=== PATIENT | male | born 1980 | race Caucasian/White ===

== ENCOUNTER 2023-11-02 04:51 | Emergency (ER) | payer OTHER ==
[2023-11-02 05:16] VITALS: TEMP 97.9
[2023-11-02] MEDS ORDERED: SODIUM CHLORIDE 0.9% 500 ML 500 ML IV STA (06:12)
[2023-11-02 06:25] LABS: Basophils # (A) 0.1 k/uL (0-0.2); Basophils % (A) 1 %; Eosinophils # (A) 0.1 k/uL (0-0.7); Eosinophils % (A) 1 %; HCT 44.8 % (39.0-53.0); Lymphocytes # (A) 1.8 k/uL (1.0-4.8); Lymphocytes % (A) 19 %; MCH 29.4 pg (25.0-35.0); MCHC 33.6 g/dL (31.0-37.0); MCV 87.6 fL (80.0-100.0); Mean Platelet Volume 8.2; Monocytes # (A) 0.7 k/uL (0-1.0); Monocytes % (A) 7 %; Neutrophils # (A) 6.8 k/uL (1.3-7.7); Neutrophils % (A) 72 %; Platelet Count 265 k/uL (150-450); RBC 5.11 m/uL (4.30-5.90); RDW 13.1 % (11.5-15.5); WBC 9.5 k/uL (3.8-10.6)
[2023-11-02 06:34] LABS: ALT 19 U/L (4-49); AST 29 U/L (17-59); African American GFR (CKD) 52 (>60 ml/min/1.73 sqM); Albumin 4.8 g/dL (3.5-5.0); Alkaline Phosphatase 103 U/L (38-126); Anion Gap 14 mmol/L; Blood Urea Nitrogen 32 mg/dL (9-20); Calcium 10.2 mg/dL (8.4-10.2); Carbon Dioxide 27 mmol/L (22-30); Chloride 101 mmol/L (98-107); Glucose 113 mg/dL (74-99); Lipase 120 U/L (23-300); Non-African American GFR(CKD) 45 (>60 ml/min/1.73 sqM); Potassium 3.4 mmol/L (3.5-5.1); Sodium 142 mmol/L (137-145); Total Bilirubin 0.7 mg/dL (0.2-1.3); Total Protein 8.2 g/dL (6.3-8.2)
--- NOTE | 2023-11-02 06:34 | ED ---
General Adult HPI - General Chief complaint: Recheck/Abnormal Lab/Rx Stated complaint: Abd pain Time Seen by Provider: 11/02/23 06:01 Source: patient, RN notes reviewed Mode of arrival: ambulatory Limitations: no limitations - History of Present Illness Initial comments: 43-year-old male presents emergency Department with chief complaint of possible kidney issues. Patient states she's had renal failure in the past he states that he has not urinated in 14+ hours. He states that he believes he does drink 1-2 gallons of water last 24 hours. Patient states he has some achiness in his lower back denies any lower abdominal pain and history is chills no chest pain or shortness breath patient states that he is on Wellbutrin he states this makes him feel dehydrated. He doesn't history of drug abuse denies any current alcohol use. - Related Data Home Medications Medication Instructions Recorded Confirmed Aspirin EC [Ecotrin Low Dose] 81 mg PO DAILY 11/02/23 11/02/23 Pantoprazole Sodium [Protonix] 40 mg PO DAILY 11/02/23 11/02/23 buPROPion XL [Wellbutrin XL] 300 mg PO DAILY 11/02/23 11/02/23 busPIRone HCL 10 mg PO TID 11/02/23 11/02/23 Allergies Allergy/AdvReac Type Severity Reaction Status Date / Time erythromycin base Allergy Rash/Hives Verified 11/02/23 06:56 Review of Systems ROS Statement: Those systems with pertinent positive or pertinent negative responses have been documented in the HPI. ROS Other: All systems not noted in ROS Statement are negative. Past Medical History Past Medical History: CVA/TIA, Myocardial Infarction ([place]) History of Any Multi-Drug Resistant Organisms: None Reported Past Surgical History: No Surgical Hx Reported Past Psychological History: Anxiety, Depression Smoking Status: Current every day smoker Past Alcohol Use History: None Reported Past Drug Use History: Cocaine, Marijuana General Exam Limitations: no limitations General appearance: alert, in no apparent distress Head exam: Present: atraumatic, normocephalic, normal inspection Eye exam: Present: normal appearance, PERRL, EOMI. Absent: scleral icterus, conjunctival injection, periorbital swelling ENT exam: Present: normal exam, normal oropharynx, mucous membranes moist Neck exam: Present: normal inspection, full ROM. Absent: tenderness, meningismus, lymphadenopathy Respiratory exam: Present: normal lung sounds bilaterally. Absent: respiratory distress, wheezes, rales, rhonchi, stridor Cardiovascular Exam: Present: regular rate, normal rhythm, normal heart sounds. Absent: systolic murmur, diastolic murmur, rubs, gallop, clicks GI/Abdominal exam: Present: soft, normal bowel sounds. Absent: distended, tenderness, guarding, rebound, rigid Neurological exam: Present: alert Skin exam: Present: warm, dry, intact, normal color. Absent: rash Course Vital Signs 11/02/23 11/02/23 11/02/23 04:58 06:55 07:26 Temperature 97.9 F Pulse Rate 86 81 69 Respiratory 18 16 20 Rate Blood Pressure 148/99 150/81 145/82 O2 Sat by Pulse 99 97 95 Oximetry Medical Decision Making - Medical Decision Making Was pt. sent in by a medical professional or institution (FABIOLA Sandy, POSTAL DELIVERY OFFICER, urgent care, hospital, or shelter...) When possible be specific @ -No Did you speak to anyone other than the patient for history (EMS, parent, family, police, friend...)? What history was obtained from this source @ -No Did you review nursing and triage notes (agree or disagree)? Why? @ -I reviewed and agree with nursing and triage notes Were old charts reviewed (outside hosp., previous admission, EMS record, old EKG, old radiological studies, urgent care reports/EKG's, shelter records)? Report findings @ -No old charts were reviewed Differential Diagnosis (chest pain, altered mental status, abdominal pain women, abdominal pain men, vaginal bleeding, weakness, fever, dyspnea, syncope, headache, dizziness, GI bleed, back pain, seizure, CVA, palpatations, mental health, musculoskeletal)? @ -Acute kidney injury, renal failure, drug use, dehydration EKG interpreted by me (3pts min.). @ -None X-rays interpreted by me (1pt min.). @ -None done CT interpreted by me (1pt min.). @ -None done U/S interpreted by me (1pt. min.). @ -None done What testing was considered but not performed or refused? (CT, X-rays, U/S, labs)? Why? @ -None What meds were considered but not given or refused? Why? @ -None Did you discuss the management of the patient with other professionals (professionals i.e. , PA, POSTAL DELIVERY OFFICER, lab, RT, psych nurse, director social, assembler carbon brushes, teacher, chief strategy officer, onsite case manager)? Give summary @ -No Was smoking cessation discussed for >3mins.? @ -No Was critical care preformed (if so, how long)? @ -No Were there social determinants of health that impacted care today? How? (Homelessness, low income, unemployed, alcoholism, drug addiction, transp ortation, low edu. Level, literacy, decrease access to med. care, intermediate, rehab)? @ -No Was there de-escalation of care discussed even if they declined (Discuss DNR or withdrawal of care, Hospice)? DNR status @ -No What co-morbidities impacted this encounter? (DM, HTN, Smoking, COPD, CAD, Cancer, CVA, ARF, Chemo, Hep., AIDS, mental health diagnosis, sleep apnea, morbid obesity)? @ -Drug use, renal failure Was patient admitted / discharged? Hospital course, mention meds given and rout e, prescriptions, significant lab abnormalities, going to OR and other pertinent info. @ -Patient left AGAINST MEDICAL ADVICE. Patient does have acute kidney injury patient is positive for methamphetamines. Patient recommended to be admitted for IV hydration patient refuses Undiagnosed new problem with uncertain prognosis? @ -[yes Drug Therapy requiring intensive monitoring for toxicity (Heparin, Nitro, Insulin, Cardizem)? @ -No Were any procedures done? @ -No Diagnosis/symptom? @ -Acute kidney injury, methamphetamine use Acute, or Chronic, or Acute on Chronic? @ -Acute Uncomplicated (without systemic symptoms) or Complicated (systemic symptoms)? @ -complicated Side effects of treatment? @ -No Exacerbation, Progression, or Severe Exacerbation? @ -No Poses a threat to life or bodily function? How? (Chest pain, [place], [place], pneumonia, PE, COPD, DKA, ARF, appy, cholecystitis, CVA, Diverticulitis, Homicidal, Suicidal, threat to staff... and all critical care pts) @ -No - Lab Data Result diagrams: 11/02/23 06:18 11/02/23 06:18 Lab Results 11/02/23 11/02/23 11/02/23 Range/Units 06:18 06:18 06:18 WBC 9.5 (3.8-10.6) k/uL RBC 5.11 (4.30-5.90) m/uL Hgb 15.0 (13.0-17.5) gm/dL Hct 44.8 (39.0-53.0) % MCV 87.6 (80.0-100.0) fL MCH 29.4 (25.0-35.0) pg MCHC 33.6 (31.0-37.0) g/dL RDW 13.1 (11.5-15.5) % Plt Count 265 (150-450) k/uL MPV 8.2 Neutrophils % 72 % Lymphocytes % 19 % Monocytes % 7 % Eosinophils % 1 % Basophils % 1 % Neutrophils # 6.8 (1.3-7.7) k/uL Lymphocytes # 1.8 (1.0-4.8) k/uL Monocytes # 0.7 (0-1.0) k/uL Eosinophils # 0.1 (0-0.7) k/uL Basophils # 0.1 (0-0.2) k/uL Sodium 142 (137-145) mmol/L Potassium 3.4 L (3.5-5.1) mmol/L Chloride 101 (98-107) mmol/L Carbon Dioxide 27 (22-30) mmol/L Anion Gap 14 mmol/L BUN 32 H (9-20) mg/dL Creatinine 1.81 H (0.66-1.25) mg/dL Est GFR (CKD-EPI)AfAm 52 (>60 ml/min/1.73 sqM) Est GFR (CKD-EPI)NonAf 45 (>60 ml/min/1.73 sqM) Glucose 113 H (74-99) mg/dL Calcium 10.2 (8.4-10.2) mg/dL Total Bilirubin 0.7 (0.2-1.3) mg/dL AST 29 (17-59) U/L ALT 19 (4-49) U/L Alkaline Phosphatase 103 (38-126) U/L Total Protein 8.2 (6.3-8.2) g/dL Albumin 4.8 (3.5-5.0) g/dL Lipase 120 (23-300) U/L Urine Color [place] Urine Appearance Slightly Cloudy (Clear) Urine pH 6.0 (5.0-8.0) Ur Specific [place] 1.030 (1.001-1.035) Urine Protein 1+ H (Negative) Urine Glucose (UA) Negative (Negative) Urine Ketones Trace H (Negative) Urine Blood Moderate H (Negative) Urine Nitrite Negative (Negative) Urine Bilirubin 1+ (Negative) Urine Urobilinogen 0.2 (<2.0) mg/dL Ur Leukocyte Esterase Negative (Negative) Urine RBC 77 H (0-5) /hpf Urine WBC 2 (0-5) /hpf Ur Squamous Epith Cells 3 (0-4) /hpf Calcium Oxalate Crystal Occasional H (None) /hpf Hyaline Casts 523 H (0-2) /lpf Urine Mucus Many H (None) /hpf Urine Opiates Screen (NotDetected) Ur Oxycodone Screen (NotDetected) Urine Methadone Screen (NotDetected) Ur Propoxyphene Screen (NotDetected) Ur Barbiturates Screen (NotDetected) U Tricyclic Antidepress (NotDetected) Ur Phencyclidine Scrn (NotDetected) Ur Amphetamines Screen (NotDetected) U Methamphetamines Scrn (NotDetected) U Benzodiazepines Scrn (NotDetected) Urine Cocaine Screen (NotDetected) U Marijuana (THC) Screen (NotDetected) 11/02/23 Range/Units 06:18 WBC (3.8-10.6) k/uL RBC (4.30-5.90) m/uL Hgb (13.0-17.5) gm/dL Hct (39.0-53.0) % MCV (80.0-100.0) fL MCH (25.0-35.0) pg MCHC (31.0-37.0) g/dL RDW (11.5-15.5) % Plt Count (150-450) k/uL MPV Neutrophils % % Lymphocytes % % Monocytes % % Eosinophils % % Basophils % % Neutrophils # (1.3-7.7) k/uL Lymphocytes # (1.0-4.8) k/uL Monocytes # (0-1.0) k/uL Eosinophils # (0-0.7) k/uL Basophils # (0-0.2) k/uL Sodium (137-145) mmol/L Potassium (3.5-5.1) mmol/L Chloride (98-107) mmol/L Carbon Dioxide (22-30) mmol/L Anion Gap mmol/L BUN (9-20) mg/dL Creatinine (0.66-1.25) mg/dL Est GFR (CKD-EPI)AfAm (>60 ml/min/1.73 sqM) Est GFR (CKD-EPI)NonAf (>60 ml/min/1.73 sqM) Glucose (74-99) mg/dL Calcium (8.4-10.2) mg/dL Total Bilirubin (0.2-1.3) mg/dL AST (17-59) U/L ALT (4-49) U/L Alkaline Phosphatase (38-126) U/L Total Protein (6.3-8.2) g/dL Albumin (3.5-5.0) g/dL Lipase (23-300) U/L Urine Color Urine Appearance (Clear) Urine pH (5.0-8.0) Ur Specific Cameron (1.001-1.035) Urine Protein (Negative) Urine Glucose (UA) (Negative) Urine Ketones (Negative) Urine Blood (Negative) Urine Nitrite (Negative) Urine Bilirubin (Negative) Urine Urobilinogen (<2.0) mg/dL Ur Leukocyte Esterase (Negative) Urine RBC (0-5) /hpf Urine WBC (0-5) /hpf Ur Squamous Epith Cells (0-4) /hpf Calcium Oxalate Crystal (None) /hpf Hyaline Casts (0-2) /lpf Urine Mucus (None) /hpf Urine Opiates Screen Not Detected (NotDetected) Ur Oxycodone Screen Not Detected (NotDetected) Urine Methadone Screen Not Detected (NotDetected) Ur Propoxyphene Screen Not Detected (NotDetected) Ur Barbiturates Screen Not Detected (NotDetected) U Tricyclic Antidepress Not Detected (NotDetected) Ur Phencyclidine Scrn Not Detected (NotDetected) Ur Amphetamines Screen Detected H (NotDetected) U Methamphetamines Scrn Detected H (NotDetected) U Benzodiazepines Scrn Not Detected (NotDetected) Urine Cocaine Screen Not Detected (NotDetected) U Marijuana (THC) Screen Detected H (NotDetected) Disposition Clinical Impression: CUCO (acute kidney injury), Methamphetamine use Disposition: LEFT AGAINST MEDICAL ADVICE Referrals: Latha Estrada FNPBC [Primary Care Provider] - 1-2 days Time of Disposition: 07:31
[2023-11-02 07:13] LABS: Appearance,Urine Slightly Cloudy (Clear); Color,Urine Orange
[2023-11-02 07:14] LABS: Bilirubin,Urine 1+ (Negative); Blood,Urine Moderate (Negative); Glucose,Urine (UA) Negative (Negative); Ketones,Urine Trace (Negative); Leukocyte Esterase,Urine Negative (Negative); Nitrite,Urine Negative (Negative); Protein,Urine 1+ (Negative); Urobilinogen,Urine 0.2 mg/dL (<2.0)
[2023-11-02 07:25] LABS: Amphetamine Screen,Urine Detected (NotDetected); Barbiturate Screen,Urine Not Detected (NotDetected); Benzodiazepines Screen,Urine Not Detected (NotDetected); Cocaine Screen,Urine Not Detected (NotDetected); Methadone Screen, Urine Not Detected (NotDetected); Opiate Screen,Urine Not Detected (NotDetected); Oxycodone Screen, Urine Not Detected (NotDetected); Phencyclidine Screen,Urine Not Detected (NotDetected); Tricyclic Antidepressant,Urine Not Detected (NotDetected); Urn Cannabinoid Scrn Detected (NotDetected)
[2023-11-02 07:27] LABS: Calcium Oxalate Crystals,Urine Occasional /hpf; Hyaline Casts,Urine 523 /lpf (0-2); Mucus,Urine Many /hpf; RBC,Urine 77 /hpf (0-5); Squamous Epithelial Cell,Urine 3 /hpf (0-4); WBC,Urine 2 /hpf (0-5)
[2023-11-02] MEDS ORDERED: SODIUM CHLORIDE 0.9% 1,000 ML IV ONE (07:40)
[2023-11-02 07:42] VITALS: BP 145/82; PULSE 69; RESP 20
== END 2023-11-02 07:48 | disposition left against medical advice (07) ==
LOC: EC 04:51
DX: N17.9 Acute kidney failure, unspecified (principal); F15.90 Other stimulant use, unspecified, uncomplicated; I25.2 Old myocardial infarction; F32.A Depression, unspecified; F41.9 Anxiety disorder, unspecified; Z86.73 Personal history of transient ischemic attack (TIA), and cerebral infarction without residual deficits; F17.200 Nicotine dependence, unspecified, uncomplicated; F12.90 Cannabis use, unspecified, uncomplicated; Z88.1 Allergy status to other antibiotic agents; Z79.82 Long term (current) use of aspirin; Z79.899 Other long term (current) drug therapy; Z53.29 Procedure and treatment not carried out because of patient's decision for other reasons
CPT/HCPCS: 36415; 51798; 80053; 80306; 81001; 83690; 85025; 99284

== ENCOUNTER 2024-05-05 17:36 | Observation (INO) | payer OTHER ==
[2024-05-05 18:16] LABS: Basophils # (A) 0.1 k/uL (0-0.2); Basophils % (A) 1 %; Eosinophils # (A) 0.1 k/uL (0-0.7); Eosinophils % (A) 2 %; HCT 42.9 % (39.0-53.0); HGB 14.3 gm/dL (13.0-17.5); Lymphocytes % (A) 29 %; MCH 28.8 pg (25.0-35.0); MCHC 33.3 g/dL (31.0-37.0); MCV 86.4 fL (80.0-100.0); Mean Platelet Volume 8.3; Monocytes # (A) 0.5 k/uL (0-1.0); Monocytes % (A) 7 %; Neutrophils # (A) 4.2 k/uL (1.3-7.7); Neutrophils % (A) 60 %; Platelet Count 208 k/uL (150-450); RBC 4.96 m/uL (4.30-5.90); RDW 13.5 % (11.5-15.5); WBC 7.1 k/uL (3.8-10.6)
[2024-05-05 18:24] LABS: Prothrombin Time 10.9 sec (10.0-12.5)
--- NOTE | 2024-05-05 18:24 | ED ---
Dizziness HPI - General Chief Complaint: Dizziness Stated Complaint: Hypertension Time Seen by Provider: 05/05/24 18:03 Source: patient, RN notes reviewed, old records reviewed Mode of arrival: ambulatory Limitations: no limitations - History of Present Illness Initial Comments: This is a 43-year-old male to the ER for evaluation of dizziness with chest pain and severe hypertension sent in by primary care's office for evaluation regarding severe hypertension and chest pain. Patient states he was not feeling well today was unable to go to work secondary to symptoms. Patient has a history of smoking as well as high blood pressure MD Complaint: dizziness, other (Chest pain) -: days(s) Timing: gradual onset Description: lightheadedness History of Same: Yes History of Trauma: Yes Severity: moderate Improves With: remaining still Worsens With: nothing Associated Symptoms: chest pain - Related Data Home Medications Medication Instructions Recorded Confirmed Aspirin EC [Ecotrin Low Dose] 81 mg PO DAILY 11/02/23 11/02/23 Pantoprazole Sodium [Protonix] 40 mg PO DAILY 11/02/23 11/02/23 buPROPion XL [Wellbutrin XL] 300 mg PO DAILY 11/02/23 11/02/23 busPIRone HCL 10 mg PO TID 11/02/23 11/02/23 Allergies Allergy/AdvReac Type Severity Reaction Status Date / Time erythromycin base Allergy Rash/Hives Verified 11/02/23 06:56 Review of Systems ROS Statement: Those systems with pertinent positive or pertinent negative responses have been documented in the HPI. ROS Other: All systems not noted in ROS Statement are negative. Past Medical History Past Medical History: CVA/TIA, Hypertension, Myocardial Infarction ([place]) History of Any Multi-Drug Resistant Organisms: None Reported Past Surgical History: No Surgical Hx Reported Past Psychological History: Anxiety, Depression Smoking Status: Current every day smoker Past Alcohol Use History: None Reported Past Drug Use History: Cocaine, Marijuana General Exam Limitations: no limitations General appearance: alert, in no apparent distress Head exam: Present: atraumatic, normocephalic, normal inspection Eye exam: Present: normal appearance, PERRL, EOMI. Absent: scleral icterus, conjunctival injection, periorbital swelling ENT exam: Present: normal exam, mucous membranes moist Neck exam: Present: normal inspection. Absent: tenderness, meningismus, lymphadenopathy Respiratory exam: Present: normal lung sounds bilaterally. Absent: respiratory distress, wheezes, rales, rhonchi, stridor Cardiovascular Exam: Present: regular rate, normal rhythm, normal heart sounds. Absent: systolic murmur, diastolic murmur, rubs, gallop, clicks GI/Abdominal exam: Present: soft, normal bowel sounds. Absent: distended, tenderness, guarding, rebound, rigid Extremities exam: Present: normal inspection, full ROM, normal capillary refill. Absent: tenderness, pedal edema, joint swelling, calf tenderness Back exam: Present: normal inspection Neurological exam: Present: alert, oriented X3, CN II-XII intact Psychiatric exam: Present: normal affect, normal mood Skin exam: Present: warm, dry, intact, normal color. Absent: rash Course Vital Signs 05/05/24 05/05/24 17:43 19:06 Temperature 97.7 F Pulse Rate 99 75 Respiratory 20 16 Rate Blood Pressure 183/122 161/113 O2 Sat by Pulse 97 99 Oximetry - Reevaluation(s) Reevaluation #1: 05/05/24 20:02 Medical records reviewed Reevaluation #2: 05/05/24 20:03 Patient still with chest pain here in the ER and elevated blood pressure Reevaluation #3: 05/05/24 20:03 Patient informed of results and questions answered Reevaluation #4: Was pt. sent in by a medical professional or institution (FABIOLA Sandy, PHYSICIAN/INTERNIST, urgent care, hospital, or custodial...) When possible be specific @ -no Did you speak to anyone other than the patient for history (EMS, parent, family, police, friend...)? What history was obtained from this source @ -no Did you review nursing and triage notes (agree or disagree)? Why? @ -agree Are old charts reviewed (outside hosp., previous admission, EMS record, old EKG, old radiological studies, urgent care reports/EKG's, custodial records)? Report findings @ -yes Differential Diagnosis (chest pain, altered mental status, abdominal pain women, abdominal pain men, vaginal bleeding, weakness, fever, dyspnea, syncope, headache, dizziness, GI bleed, back pain, seizure, CVA, palpatations, mental health, musculoskeletal)? @ -prior EKG interpreted by me (3pts min.). @ -yes X-rays interpreted by me (1pt min.). @ -yes negative for acute disease CT interpreted by me (1pt min.). @ -no U/S interpreted by me (1pt. min.). @ -no What testing was considered but not performed or refused? (CT, X-rays, U/S, labs)? Why? @ -none What meds were considered but not given or refused? Why? @ -none Did you discuss the management of the patient with other professionals (professionals i.e. DrDarlene, PA, PHYSICIAN/INTERNIST, lab, RT, psych nurse, social secretary, billet header, teacher, ammunition officer, piano case and bench assembler)? Give summary @ -no Was smoking cessation discussed for >3mins.? @ -no Was critical care preformed (if so, how long)? @ -no Were there social determinants of health that impacted care today? How? (Homelessness, low income, unemployed, alcoholism, drug addiction, transportation, low edu. Level, literacy, decrease access to med. care, shelter, rehab)? @ -none Was there de-escalation of care discussed even if they declined (Discuss DNR or withdrawal of care, Hospice)? DNR status @ -no What co-morbidities impacted this encounter? (DM, HTN, Smoking, COPD, CAD, Cancer, CVA, ARF, Chemo, Hep., AIDS, mental health diagnosis, sleep apnea, morbid obesity)? @ -none Was patient admitted / discharged? Hospital course, mention meds given and route, prescriptions, significant lab abnormalities, going to OR and other pertinent info. @ - Undiagnosed new problem with uncertain prognosis? @ -no Drug Therapy requiring intensive monitoring for toxicity (Heparin, Nitro, Insulin, Cardizem)? @ -no Were any procedures done? @ -no Diagnosis/symptom? @ - Acute, or Chronic, or Acute on Chronic? @ -Acute Uncomplicated (without systemic symptoms) or Complicated (systemic symptoms)? @ -Complicated Side effects of treatment? @ -no Exacerbation, Progression, or Severe Exacerbation? @ -exacerbation Poses a threat to life or bodily function? How? (Chest pain, [place], [place], pneumonia, PE, COPD, DKA, ARF, appy, cholecystitis, CVA, Diverticulitis, Homicidal, Suicidal, threat to staff... and all critical care pts) @ -yes Reevaluation #5: Differential Chest Pain: Stable Angina, Unstable Angina, STEMI, NSTEMI Aortic Dissection, Pneumothorax, Musculoskeletal, Esophageal Spasm GERD, Cholecystitis, Pancreatitis, Zoster, this is not meant to be an all-inclusive list. EKG Findings - EKG Comments: EKG Findings:: EKG sinus 97 NH 156 QRS 98 QTc 414 - EKG Results: EKG: interpreted by KARLA Medical Decision Making - Medical Decision Making 43 male to the ER for evaluation of chest pain and hypertension. Severe hypertension noted here in the ER patient given blood pressure control and will admit for chest pain observation - Lab Data Result diagrams: 05/05/24 18:12 05/05/24 18:12 Lab Results 05/05/24 05/05/24 05/05/24 Range/Units 18:12 18:12 18:12 WBC 7.1 (3.8-10.6) k/uL RBC 4.96 (4.30-5.90) m/uL Hgb 14.3 (13.0-17.5) gm/dL Hct 42.9 (39.0-53.0) % MCV 86.4 (80.0-100.0) fL MCH 28.8 (25.0-35.0) pg MCHC 33.3 (31.0-37.0) g/dL RDW 13.5 (11.5-15.5) % Plt Count 208 (150-450) k/uL MPV 8.3 Neutrophils % 60 % Lymphocytes % 29 % Monocytes % 7 % Eosinophils % 2 % Basophils % 1 % Neutrophils # 4.2 (1.3-7.7) k/uL Lymphocytes # 2.0 (1.0-4.8) k/uL Monocytes # 0.5 (0-1.0) k/uL Eosinophils # 0.1 (0-0.7) k/uL Basophils # 0.1 (0-0.2) k/uL PT 10.9 (10.0-12.5) sec INR 1.0 (<1.2) Sodium 135 L (137-145) mmol/L Potassium 3.7 (3.5-5.1) mmol/L Chloride 102 (98-107) mmol/L Carbon Dioxide 27 (22-30) mmol/L Anion Gap 6 mmol/L BUN 10 (9-20) mg/dL Creatinine 0.73 (0.66-1.25) mg/dL Est GFR (CKD-EPI)AfAm >90 (>60 ml/min/1.73 sqM) Est GFR (CKD-EPI)NonAf >90 (>60 ml/min/1.73 sqM) Glucose 104 H (74-99) mg/dL Calcium 8.9 (8.4-10.2) mg/dL Total Bilirubin 0.7 (0.2-1.3) mg/dL AST 37 (17-59) U/L ALT 14 (4-49) U/L Alkaline Phosphatase 81 (38-126) U/L Troponin I (0.000-0.034) ng/mL Total Protein 7.4 (6.3-8.2) g/dL Albumin 4.1 (3.5-5.0) g/dL 05/05/24 Range/Units 18:12 WBC (3.8-10.6) k/uL RBC (4.30-5.90) m/uL Hgb (13.0-17.5) gm/dL Hct (39.0-53.0) % MCV (80.0-100.0) fL MCH (25.0-35.0) pg MCHC (31.0-37.0) g/dL RDW (11.5-15.5) % Plt Count (150-450) k/uL MPV Neutrophils % % Lymphocytes % % Monocytes % % Eosinophils % % Basophils % % Neutrophils # (1.3-7.7) k/uL Lymphocytes # (1.0-4.8) k/uL Monocytes # (0-1.0) k/uL Eosinophils # (0-0.7) k/uL Basophils # (0-0.2) k/uL PT (10.0-12.5) sec INR (<1.2) Sodium (137-145) mmol/L Potassium (3.5-5.1) mmol/L Chloride (98-107) mmol/L Carbon Dioxide (22-30) mmol/L Anion Gap mmol/L BUN (9-20) mg/dL Creatinine (0.66-1.25) mg/dL Est GFR (CKD-EPI)AfAm (>60 ml/min/1.73 sqM) Est GFR (CKD-EPI)NonAf (>60 ml/min/1.73 sqM) Glucose (74-99) mg/dL Calcium (8.4-10.2) mg/dL Total Bilirubin (0.2-1.3) mg/dL AST (17-59) U/L ALT (4-49) U/L Alkaline Phosphatase (38-126) U/L Troponin I <0.012 (0.000-0.034) ng/mL Total Protein (6.3-8.2) g/dL Albumin (3.5-5.0) g/dL - Radiology Data Radiology results: report reviewed (Chest x-ray CT angio chest negative for acute disease), image reviewed Disposition Clinical Impression: Chest pain, Dizziness, Hypertension Disposition: ADMITTED IP TO THIS HOSP Condition: Fair Is patient prescribed a controlled substance at d/c from ED?: No Referrals: Rob Saldivar MD [Primary Care Provider] - 1-2 days Time of Disposition: 20:00
[2024-05-05 18:34] LABS: ALT 14 U/L (4-49); AST 37 U/L (17-59); African American GFR (CKD) >90 (>60 ml/min/1.73 sqM); Albumin 4.1 g/dL (3.5-5.0); Alkaline Phosphatase 81 U/L (38-126); Anion Gap 6 mmol/L; Blood Urea Nitrogen 10 mg/dL (9-20); Calcium 8.9 mg/dL (8.4-10.2); Carbon Dioxide 27 mmol/L (22-30); Chloride 102 mmol/L (98-107); Glucose 104 mg/dL (74-99); Non-African American GFR(CKD) >90 (>60 ml/min/1.73 sqM); Sodium 135 mmol/L (137-145); Total Bilirubin 0.7 mg/dL (0.2-1.3); Total Protein 7.4 g/dL (6.3-8.2)
[2024-05-05 18:40] LABS: Potassium 3.7 mmol/L (3.5-5.1)
[2024-05-05] MEDS ORDERED: MORPHINE SULFATE 4 MG/ML SYRINGE IV PRN (19:59)
[2024-05-05] MEDS ORDERED: NITROGLYCERIN SL TABS 0.4 MG TAB SUBLINGUAL PRN (19:59)
[2024-05-05] MEDS: SODIUM CHLORIDE 0.9% 1,000 ML IV STA (20:11)
[2024-05-05] MEDS: hydrALAZINE HCL 20 MG/ML 1 ML VIAL IVP STA (20:12)
[2024-05-05] MEDS: ASPIRIN 81 MG PO STA (20:13)
--- NOTE | 2024-05-05 21:16 | CT ---
EXAMINATION TYPE: CT angio chest DATE OF EXAM: 05/05/2024 8:54 PM COMPARISON: HISTORY: pain, tingling in right leg, dyspnea. CT DLP: 391.6 mGycm Automated exposure control for dose reduction was used. CONTRAST: CTA scan of the thorax is performed with IV Contrast, patient injected with 80ml mL of Isovue 370, pu lmonary embolism protocol. . FINDINGS: LUNGS: Emphysematous changes with central and basilar bronchiectasis. Subsegmental consolidation most typical of atelectasis. No focal pneumonia. No pulmonary edema. There is multiple pulmonary nodules in the right lung apex the largest measuring 1 cm. A patchy bilateral areas of nodularity in the and groundglass infiltrates in the bilateral lungs. Possibly postinfectious. Including atypical infection . MEDIASTINUM: There is severely limited enhancement of the pulmonary artery and its branches, there is no CT evidence for central pulmonary embolism. Secondary and distal branches are nondiagnostic. Jordy ot exclude pulmonary embolism this distribution. There is borderline to mild mediastinal\hilar lymphadenopathy possibly reactive. Other etiologies not excluded. No pericardial effusion is seen. Thoracic aorta measures a 4 cm. Subpleural 2 mm right low er lobe pulmonary micronodule OTHER: Mild endplate deformity in the midthoracic spine of indeterminate age. Multilevel degenerativ e changes. Small hiatal hernia. Hypodense right renal lesion suboptimally evaluated and limited in th e [id number]. Thickening of the adrenal glands could be related to benign hyperplasia or tiny tomasa omas. IMPRESSION: 1. Severely limited exam due to suboptimal enhancement of the pulmonary arteries. There is no main pu lmonary artery embolism. Secondary and distal branches nondiagnostic 2. There are multiple right apical nodules the largest measuring 1 cm. Patchy groundglass infiltrates in the region. Could be postinflammatory or infectious, correlate clinically. Recommend follow-up to resolution with short-term follow-up CT scan to exclude neoplasm. 3. There is a borderline to mild mediastinal adenopathy which could be reactive if the above findings are infectious. Neoplastic process not excluded. 4. Thoracic a ascending aorta measures 4 cm compatible with mild aneurysmal dilation.
[2024-05-05] MEDS: METOPROLOL TARTRATE 50 MG TAB PO SCH (23:33)
--- NOTE | 2024-05-06 11:16 | CA ---
Transthoracic Echo Report Name: Juan Allison Age: 43 Gender: M : 1980 Exam Date: 05/06/2024 07:56 Exam Location: [facility] Ht (in): 72 Wt (lb): 188 Ordering Physician: Julio Gay DO Attending/Referring Phys: [id number], [place] Customer Success Advocate Leah Dacosta RDCS Procedure CPT: Indications: CP Cardiac Hx: Technical Quality: Good Contrast 1: Total Dose (mL): Contrast 2: Total Dose (mL): MEASUREMENTS (Male / Female) Normal Values 2D ECHO LV Diastolic Diameter PLAX 4.6 cm 4.2 - 5.9 / 3.9 - 5.3 cm LV Systolic Diameter PLAX 3.6 cm IVS Diastolic Thickness 1.4 cm 0.6 - 1.0 / 0.6 - 0.9 cm LVPW Diastolic Thickness 1.6 cm 0.6 - 1.0 / 0.6 - 0.9 cm LV Relative Wall Thickness 0.7 RV Internal Dim ED PLAX 3.0 cm LA Systolic Diameter LX 3.3 cm 3.0 - 4.0 / 2.7 - 3.8 cm LV Diastolic Volume MOD BP 142.6 cm??? 67 - 155 / 56 - 104 cm??? LV Systolic Volume MOD BP 75.4 cm??? - 58 / 19 - 49 cm??? LV Ejection Fraction MOD BP 47.2 % >= 55 % LV Cardiac Index MOD BP 2672.6 cm???/min???m??? LV Diastolic Volume MOD 4C 149.6 cm??? LV Systolic Volume MOD 4C 70.7 cm??? LV Ejection Fraction MOD 4C 52.8 % LV Cardiac Index MOD 4C 3136.0 cm???/min???m??? LV Diastolic Length 4C 9.0 cm LV Systolic Length 4C 8.3 cm LV Diastolic Volume MOD 2C 128.1 cm??? LV Systolic Volume MOD 2C 71.7 cm??? LV Ejection Fraction MOD 2C 44.0 % LV Cardiac Index MOD 2C 2238.4 cm???/min???m??? LV Diastolic Length 2C 8.4 cm LV Systolic Length 2C 7.3 cm LA Volume 68.7 cm??? 18 - 58 / 22 - 52 cm??? LA Volume Index 32.9 cm???/m??? 16 - 28 cm???/m??? M-MODE Aortic Root Diameter MM 3.2 cm LA Systolic Diameter MM 4.1 cm LA Ao Ratio MM 1.3 AV Cusp Separation MM 2.2 cm DOPPLER MV Area PHT 2.9 cm??? Mitral E Point Velocity 58.7 cm/s Mitral A Point Velocity 53.1 cm/s Mitral E to A Ratio 1.1 MV Deceleration Time 260.3 ms TR Peak Velocity 195.9 cm/s TR Peak Gradient 15.3 mmHg Right Ventricular Systolic Press 18.9 mmHg FINDINGS Left Ventricle Left ventricular ejection fraction is estimated at 45-50 %. Moderately increased septal wall thickness. Moderately increased left ventricular systolic volume. Mildly decreased left ventricular ejection fraction. Right Ventricle Normal right ventricular size and function. Right ventricular systolic pressure within normal limits. Right Atrium Mild right atrial dilatation. Left Atrium Mildly increased left atrial volume. Mitral Valve Structurally normal mitral valve. Mild mitral regurgitation. Aortic Valve Trileaflet aortic valve. No aortic valve stenosis or regurgitation. Tricuspid Valve Structurally normal tricuspid valve. Mild tricuspid regurgitation. Pulmonic Valve Structurally normal pulmonic valve. Trace pulmonic regurgitation. No pulmonic stenosis. Pericardium No pericardial or pleural effusion. Aorta Normal size aortic root and proximal ascending aorta. CONCLUSIONS Left ventricular ejection fraction is estimated at 45-50 %. Moderate concentric LVH No obvious regional wall motion abnormality Mild biatrial dilatation Mild MR. Previewed by: Dr Bobby Villalobos (Electronically Signed) Final Date: 06 May 2024 11:15
[2024-05-06] MEDS: ASPIRIN 325 MG TAB PO SCH (12:05)
[2024-05-06] MEDS: ASPIRIN 81 MG PO SCH (12:31)
[2024-05-06] MEDS: amLODIPine 5 MG TAB PO SCH (12:32)
[2024-05-06] MEDS: lisinopriL 20 MG TAB PO SCH (12:32)
[2024-05-06 13:13] LABS: Chol/HDL Ratio 4.56 Ratio; LDL Cholesterol,Calculated 101.7 mg/dL (0.0-131.0)
--- NOTE | 2024-05-06 14:11 | P.CRDCN ---
History of Present Illness Consult date: 05/06/24 History of present illness: HISTORY OF PRESENTING ILLNESS 43-year-old male with past medical history of essential hypertension managed on lisinopril 40 mg. Recently his antihypertensives were increased and he was started on amlodipine 5 mg. He presented to the hospital because of feeling of lightheadedness, generalized weakness along with substernal chest pressure-like symptoms. He describes a substernal chest pressure-like symptoms as pressure-like sensation which would come and go and last for few minutes. He would have 4-5 episodes in a day. This has been going on for 1 today prior to admission. Along with lightheadedness he has also been noticing numbness which is transient in his left lower extremity. On admission he was noticed to be hypertensive with SBP 172/97, ECG shows sinus rhythm with normal axis, no significant resting ST changes history of ischemia Echocardiogram showed an EF of 45 to 50% with no obvious regional wall motion abnormality. REVIEW OF SYSTEMS 14 point review of system is negative except what is mentioned above in HPI. PHYSICAL EXAMINATION Vital signs reviewed. Head: Normocephalic. Eyes: Sclerae nonicteric. Neck: Brisk carotid upstroke, no jugular venous distention. Lungs: Clear to auscultation. Heart: Regular rate and rhythm, S1-S2, no S3, no murmur or rub. Abdomen: Soft nontender, positive bowel sounds. Extremities: No edema, intact distal pulses. Neuro: Alert, oritented, no focal deficits. Detailed neuro exam was not performed. ASSESSMENT Substernal chest pressure, likely unstable angina Newly diagnosed cardiomyopathy with mildly reduced EF. Appears euvolemic not in exacerbation. LVEF 45 to 50%. Essential hypertension poorly controlled Tobacco smoker 1 pack/day Marijuana user every day Occasional alcohol use PLAN Patient's cardiomyopathy could be related to uncontrolled blood pressure. How ever considering patient's risk factors of smoking, marijuana use and middle-age male, he is at high pretest probability for coronary artery disease. Reviewed plan for cardiac catheterization on Wednesday. I have explained the risk factors for cardiac catheterization procedure including stroke, ID, . Patient understands and would like to proceed. Start aspirin 81 mg, atorvastatin 40 mg Continue lisinopril 40 mg, amlodipine 5 mg Start metoprolol 50 mg twice daily Smoking cessation counseling and marijuana cessation counseling provided Bobby Villalobos MD, FACC, RPVI Thank you for allowing [facility] to participate in this patient's care. Feel free to reach out in case of any followup questions. Past Medical History Past Medical History: CVA/TIA, Hypertension, Myocardial Infarction (ID) Additional Past Medical History / Comment(s): TIA Last Myocardial Infarction Date:: 2015 History of Any Multi-Drug Resistant Organisms: None Reported Past Surgical History: No Surgical Hx Reported Additional Past Surgical History / Comment(s): ear surgery as an Past Psychological History: Anxiety, Depression Smoking Status: Current every day smoker Past Alcohol Use History: None Reported Past Drug Use History: Cocaine, Marijuana Medications and Allergies Home Medications Medication Instructions Recorded Confirmed Type Pantoprazole Sodium [Protonix] 40 mg PO DAILY 11/02/23 05/05/24 History buPROPion XL [Wellbutrin XL] 300 mg PO DAILY 11/02/23 05/05/24 History busPIRone HCL 10 mg PO TID-W/MEALS 11/02/23 05/05/24 History Amoxic-Pot Clav 875-125Mg 1 tab PO BID 05/05/24 05/05/24 History [Augmentin 875-125] Cetirizine HCl [Zyrtec] 10 mg PO DAILY 05/05/24 05/05/24 History Fluticasone Nasal [place] [Flonase 1 spr EA NOSTRIL BID PRN 05/05/24 05/05/24 History Nasal [place]] amLODIPine [Norvasc] 5 mg PO DAILY 05/05/24 05/05/24 History lisinopriL 40 mg PO DAILY 05/05/24 05/05/24 History Allergies Allergy/AdvReac Type Severity Reaction Status Date / Time erythromycin base Allergy Rash/Hives Verified 05/05/24 20:47 Physical Exam Vitals: Vital Signs Temp Pulse Pulse Resp BP BP Pulse Ox 05/06/24 14:10 97.6 F 57 L 18 130/79 98 05/06/24 12:28 62 16 138/89 98 05/06/24 08:49 99 05/06/24 07:00 97.7 F 68 16 142/91 99 05/06/24 02:33 98.2 F 72 16 136/90 97 05/05/24 23:19 97.6 F 80 16 172/97 99 05/05/24 22:45 67 18 117/73 98 05/05/24 21:00 81 18 151/109 98 05/05/24 20:10 82 18 153/105 95 05/05/24 19:06 75 16 161/113 99 05/05/24 17:43 97.7 F 99 20 183/122 97 FiO2 05/06/24 14:10 05/06/24 12:28 05/06/24 08:49 21 05/06/24 07:00 05/06/24 02:33 05/05/24 23:19 05/05/24 22:45 05/05/24 21:00 05/05/24 20:10 05/05/24 19:06 05/05/24 17:43 Intake and Output 05/05/24 05/06/24 05/06/24 22:59 06:59 14:59 Intake Total 118 Balance 118 Intake: Oral 118 Other: # Voids 2 2 Weight 85.593 kg 85.593 kg Results 05/05/24 18:12 05/05/24 18:12 Cardiac Enzymes 05/05/24 05/05/24 05/05/24 Range/Units 18:12 18:12 21:24 AST 37 (17-59) U/L Troponin I <0.012 <0.012 (0.000-0.034) ng/mL 05/06/24 Range/Units 00:05 AST (17-59) U/L Troponin I <0.012 (0.000-0.034) ng/mL Coagulation 05/05/24 Range/Units 18:12 PT 10.9 (10.0-12.5) sec Lipids 05/06/24 Range/Units 06:50 Triglycerides 120.00 (0.00-149.00) mg/dL Cholesterol 161.00 (0.00-200.00) mg/dL HDL Cholesterol 35.30 L (40.00-60.00) mg/dL Cholesterol/HDL Ratio 4.56 Ratio CBC 05/05/24 Range/Units 18:12 WBC 7.1 (3.8-10.6) k/uL RBC 4.96 (4.30-5.90) m/uL Hgb 14.3 (13.0-17.5) gm/dL Hct 42.9 (39.0-53.0) % Plt Count 208 (150-450) k/uL Comprehensive Metabolic Panel 05/05/24 Range/Units 18:12 Sodium 135 L (137-145) mmol/L Potassium 3.7 (3.5-5.1) mmol/L Chloride 102 (98-107) mmol/L Carbon Dioxide 27 (22-30) mmol/L BUN 10 (9-20) mg/dL Creatinine 0.73 (0.66-1.25) mg/dL Glucose 104 H (74-99) mg/dL Calcium 8.9 (8.4-10.2) mg/dL AST 37 (17-59) U/L ALT 14 (4-49) U/L Alkaline Phosphatase 81 (38-126) U/L Total Protein 7.4 (6.3-8.2) g/dL Albumin 4.1 (3.5-5.0) g/dL Current Medications Generic Name Dose Route Start Last Admin Trade Name Freq PRN Reason Stop Dose Admin Amlodipine Besylate 5 mg 05/06/24 12:00 05/06/24 12:32 Amlodipine 5 Mg Tab PO Not Given DAILY [facility] Aspirin 81 mg 05/06/24 12:00 05/06/24 12:31 Aspirin 81 Mg PO 81 mg DAILY [facility] Administration Atorvastatin Calcium 40 mg 05/06/24 21:00 Atorvastatin 40 Mg Tab PO HS [facility] Lisinopril 40 mg 05/06/24 12:00 05/06/24 12:32 Lisinopril 20 Mg Tab PO Not Given DAILY [facility] Metoprolol Tartrate 50 mg 05/05/24 21:00 05/06/24 12:31 Metoprolol Tartrate 50 Mg Tab PO 50 mg BID [facility] Administration Morphine Sulfate 4 mg 05/05/24 19:59 Morphine Sulfate 4 Mg/Ml Syringe IV Q4HR PRN Chest Pain Nitroglycerin 0.4 mg 05/05/24 19:59 Nitroglycerin Sl Tabs 0.4 Mg Tab SUBLINGUAL Q5M PRN Chest Pain Intake and Output 05/05/24 05/06/24 05/06/24 22:59 06:59 14:59 Intake Total 118 Balance 118 Intake: Oral 118 Other: # Voids 2 2 Weight 85.593 kg 85.593 kg 05/05/24 18:12 05/05/24 18:12
[2024-05-06] MEDS ORDERED: FLUTICASONE 50MCG/SPRAY NASAL 16GM EA NOSTRIL PRN (14:26)
[2024-05-06] MEDS: busPIRone HCl 10 MG TAB PO SCH (18:01)
[2024-05-06] MEDS: ATORVASTATIN 40 MG TAB PO SCH (20:10)
[2024-05-07] MEDS: PANTOPRAZOLE 40 MG TABLET PO SCH (05:46)
[2024-05-07 07:52] VITALS: RESP 16
[2024-05-07] MEDS: LORATADINE 10 MG TAB PO SCH (08:51)
[2024-05-07] MEDS: buPROPion XL 300 MG TAB.ER.24H PO SCH (08:51)
--- NOTE | 2024-05-07 11:33 | P.PN ---
Subjective Progress Note Date: 05/07/24 Progress note May 07, 2024 Patient is examined at bedside. His blood pressure is better controlled since admission. Still elevated around 1 40-1 50 systolic blood pressure. He is on lisinopril 40 mg and Norvasc 5 mg at home. Norvasc was a new medication for him. I have also started him on Imdur 15 mg. Echocardiogram showed an EF of 45 to 50% but I feel that could be related to his elevated blood pressure. His BNP is normal troponins are negative. He is chest pain-free HISTORY OF PRESENTING ILLNESS 43-year-old male with past medical history of essential hypertension managed on lisinopril 40 mg. Recently his antihypertensives were increased and he was started on amlodipine 5 mg. He presented to the hospital because of feeling of lightheadedness, generalized weakness along with substernal chest pressure-like symptoms. He describes a substernal chest pressure-like symptoms as pressure-like sensation which would come and go and last for few minutes. He would have 4-5 episodes in a day. This has been going on for 1 today prior to admission. Along with lightheadedness he has also been noticing numbness which is transient in his left lower extremity. On admission he was noticed to be hypertensive with SBP 172/97, ECG shows sinus rhythm with normal axis, no significant resting ST changes history of ischemia Echocardiogram showed an EF of 45 to 50% with no obvious regional wall motion abnormality. REVIEW OF SYSTEMS 14 point review of system is negative except what is mentioned above in HPI. PHYSICAL EXAMINATION Vital signs reviewed. Head: Normocephalic. Eyes: Sclerae nonicteric. Neck: Brisk carotid upstroke, no jugular venous distention. Lungs: Clear to auscultation. Heart: Regular rate and rhythm, S1-S2, no S3, no murmur or rub. Abdomen: Soft nontender, positive bowel sounds. Extremities: No edema, intact distal pulses. Neuro: Alert, oritented, no focal deficits. Detailed neuro exam was not performed. ASSESSMENT Atypical chest pain, ruled out of ACS. Normal troponin normal BNP Mildly reduced LVEF, EF 45 to 50%. Likely related to uncontrolled blood pressure Essential hypertension poorly controlled Tobacco smoker 1 pack/day Marijuana user every day Occasional alcohol use Prior use of cocaine PLAN Patient's cardiomyopathy could be related to uncontrolled blood pressure. Obtain a treadmill echo stress test to see if LVEF is augmentable and if there is any wall motion abnormality. If stress test is abnormal, consider cardiac authorization Start aspirin 81 mg, atorvastatin 40 mg Continue lisinopril 40 mg, amlodipine 5 mg Start Imdur 15 mg daily Consider starting metoprolol succinate 25 mg after the stress test. Smoking cessation counseling and marijuana cessation counseling provided. Refrain from cocaine use Objective - Vital Signs Vital signs: Vital Signs Temp 97.5 F L 05/07/24 07:00 Pulse 51 L 05/07/24 07:00 Resp 16 05/07/24 07:00 BP 151/93 05/07/24 07:00 Pulse Ox 99 05/07/24 09:40 FiO2 21 05/07/24 09:40 Intake & Output 05/06/24 05/07/24 05/07/24 18:59 06:59 18:59 Intake Total 355 595 Balance 355 595 Intake: Oral 355 595 Other: # Voids 2 2 - Labs CBC & Chem 7: 05/05/24 18:12 05/05/24 18:12 Labs: Abnormal Lab Results - Last 24 Hours (Table) 05/06/24 Range/Units 06:50 HDL Cholesterol 35.30 L (40.00-60.00) mg/dL
[2024-05-07] MEDS: ISOSORBIDE MONONITRATE ER 15 MG TAB PO SCH (11:52)
[2024-05-07 14:42] VITALS: BP 148/86; PULSE 64; TEMP 97.8
[2024-05-07] MEDS: amLODIPine 10 MG TAB PO STA (17:18)
--- NOTE | 2024-05-07 22:58 | PN ---
PROGRESS NOTE DATE OF SERVICE: 05/06/2024 CHIEF COMPLAINT: Hypertensive urgency and chest pain. HISTORY OF PRESENT ILLNESS: This gentleman is doing quite well. Blood pressure is coming down. He has no pain or shortness of breath. Troponins that have been normal. PHYSICAL EXAMINATION: CHEST: Clear. CARDIAC: Normal. ABDOMEN: Soft, nontender. IMPRESSION: 1. Hypertensive urgency. 2. Chest pain. PLAN: Continue efforts to control his hypertension while increasing his activity. Apparently, his Doppler revealed an ejection fraction between 45% and 50%, which would put him in at least temporarily in the category of heart failure with impaired ejection fraction. MMODL / IJN: [id number] /
--- NOTE | 2024-05-07 23:04 | DS ---
DISCHARGE SUMMARY CHIEF COMPLAINT: Hypertensive urgency and chest pain. HISTORY OF PRESENT ILLNESS AND PHYSICAL EXAM: Details of this man's history and physical can be found in the initial workup. LABORATORY STUDIES: While he is in the hospital, he had laboratory studies, details of which can be found in the laboratory section of his chart. COURSE IN THE HOSPITAL: After admission, he was placed on bedrest on intravenous fluids with emphasis on control. He has hypertension, which is down. Three troponins were negative. His BNP was initially elevated and this will be followed. His EKG demonstrated possible old anteroseptal infarction with a Q in V1 and V2. He was stable and doing well. It was felt that he could be discharged on , and he will go home on additional antihypertensive medications, isosorbide mononitrate, and aspirin. When he follows up in the office, he will be set up for either an exercise stress or stress echo. FINAL DIAGNOSIS: 1. Hypertensive urgency. 2. Chest pain. 3. Abnormal EKG. OPERATIONS: None. CONSULTATIONS: Cardiology is improved. SIERRA / MARISA: [id number] /
--- NOTE | 2024-05-07 23:49 | HP ---
HISTORY AND PHYSICAL CHIEF COMPLAINT: Hypertension, chest pain. HISTORY OF PRESENT ILLNESS: This gentleman was seen in the office with chest pain and elevated blood pressure. He was sent to the emergency room. In the emergency room, his blood pressure was elevated. EKG demonstrated Q in precordial leads 1 and 2. Troponins were normal. REVIEW OF SYSTEMS: He denied any diaphoresis, radiation of the pain, orthopnea, PND, abdominal pain, diarrhea, nausea, vomiting, urinary complaints, etc. Past medical history, family history, personal and social history otherwise unremarkable and otherwise noncontributory. He does have a history of hypertension. PHYSICAL EXAMINATION: VITAL SIGNS: Blood pressure is 183/122. Remainder of the vital signs are normal. HEAD, EARS, EYES, NOSE, MOUTH, AND THROAT: Normal. CHEST: Clear. CARDIAC: Normal. ABDOMEN: Soft and nontender. EXTREMITIES: Normal. NEUROLOGICAL: He is intact. ASSESSMENT: He is admitted to the hospital with diagnosis, 1. Uncontrolled hypertension. 2. Chest pain. PLAN: 1. Bed rest. 2. IV fluids. 3. Serial EKGs and enzymes. 4. Echocardiogram. 5. Control hypertension. 6. Outpatient cardiac workup. MMODL / IJN: [id number] /
[2024-05-08] MEDS ORDERED: METOPROLOL SUCCINATE (ER) 25 MG TAB.ER.24H PO SCH (09:00)
[2024-05-08] MEDS ORDERED: CHLORTHALIDONE 25 MG TAB PO SCH (09:00)
== END 2024-05-07 17:14 | disposition home or self-care (01) ==
LOC: EC 17:36 → 6NMEDSUR 19:59
PROVIDERS: ADMIT Family Medicine; ATTEND Family Medicine
DX: I16.0 Hypertensive urgency (principal); I42.9 Cardiomyopathy, unspecified; F17.210 Nicotine dependence, cigarettes, uncomplicated; Z86.73 Personal history of transient ischemic attack (TIA), and cerebral infarction without residual deficits; Z79.82 Long term (current) use of aspirin; R94.31 Abnormal electrocardiogram [ECG] [EKG]
CPT/HCPCS: 96361 ×2; 96374; 99285; 36415; 94760 ×2; 93005; 93306; 83880; 80061; 80053; 84484 ×2; 85025; 85610; 71275; G0378 ×3; J0360; Q9967

== ENCOUNTER 2024-05-09 13:02 | Observation (INO) | payer OTHER ==
[2024-05-09 13:37] LABS: Basophils % (A) 1 %; Eosinophils # (A) 0.3 k/uL (0-0.7); Eosinophils % (A) 4 %; HCT 48.9 % (39.0-53.0); HGB 16.2 gm/dL (13.0-17.5); Lymphocytes % (A) 27 %; MCHC 33.1 g/dL (31.0-37.0); MCV 87.4 fL (80.0-100.0); Mean Platelet Volume 8.1; Monocytes # (A) 0.6 k/uL (0-1.0); Monocytes % (A) 8 %; Neutrophils # (A) 4.5 k/uL (1.3-7.7); Neutrophils % (A) 60 %; Platelet Count 295 k/uL (150-450); WBC 7.5 k/uL (3.8-10.6)
--- NOTE | 2024-05-09 13:42 | XR ---
EXAMINATION TYPE: XR chest 2V DATE OF EXAM: 05/09/2024 COMPARISON: None INDICATION: Chest pain TECHNIQUE: Frontal and lateral views of the chest are obtained. FINDINGS: The heart size is normal. The pulmonary vasculature is normal. The lungs are clear. Some hyperinflation is present. IMPRESSION: 1. No acute pulmonary process.
[2024-05-09 13:46] LABS: Partial Thromboplastin Time 24.2 sec (22.0-30.0); Prothrombin Time 11.1 sec (10.0-12.5)
[2024-05-09 14:16] LABS: ALT 15 U/L (4-49); AST 23 U/L (17-59); African American GFR (CKD) >90 (>60 ml/min/1.73 sqM); Albumin 4.3 g/dL (3.5-5.0); Alkaline Phosphatase 89 U/L (38-126); Anion Gap 7 mmol/L; Blood Urea Nitrogen 15 mg/dL (9-20); Calcium 9.3 mg/dL (8.4-10.2); Carbon Dioxide 29 mmol/L (22-30); Chloride 105 mmol/L (98-107); Glucose 66 mg/dL (74-99); Magnesium 1.9 mg/dL (1.6-2.3); Non-African American GFR(CKD) >90 (>60 ml/min/1.73 sqM); Potassium 4.1 mmol/L (3.5-5.1); Sodium 141 mmol/L (137-145); Total Bilirubin 0.7 mg/dL (0.2-1.3); Total Protein 7.7 g/dL (6.3-8.2)
--- NOTE | 2024-05-09 15:51 | ED ---
General Adult HPI - General Chief complaint: Chest Pain Stated complaint: chest pain, high bp Time Seen by Provider: 05/09/24 15:00 Source: patient, RN notes reviewed, old records reviewed Limitations: no limitations - History of Present Illness Initial comments: Is a 43-year-old male who presents to the emergency department stating that when he was home he was having some chest pain that lasted about an hour he was also short of breath and started sweating. Patient states he was just here in the hospital for high blood pressure and chest pain. Patient states he also took his blood pressure at home and it was significantly elevated. Patient states he was very anxious at the time because of the chest pain. Patient denies any lightheadedness or dizziness. Patient has any headache. Patient has numbness or weakness. Patient denies back pain - Related Data Home Medications Medication Instructions Recorded Confirmed Pantoprazole Sodium [Protonix] 40 mg PO DAILY 11/02/23 05/09/24 buPROPion XL [Wellbutrin XL] 300 mg PO DAILY 11/02/23 05/09/24 busPIRone HCL 10 mg PO TID-W/MEALS 11/02/23 05/09/24 lisinopriL 40 mg PO DAILY 05/05/24 05/09/24 Isosorbide Mononitrate ER [Imdur] 15 mg PO DAILY 05/09/24 05/09/24 amLODIPine [Norvasc] 10 mg PO DAILY 05/09/24 05/09/24 Previous Rx's Medication Instructions Recorded Aspirin 81 mg PO DAILY #100 tab 05/07/24 Atorvastatin [Lipitor] 40 mg PO HS #30 tab 05/07/24 Chlorthalidone [Hygroton] 25 mg PO DAILY #30 tab 05/07/24 Allergies Allergy/AdvReac Type Severity Reaction Status Date / Time erythromycin base Allergy Rash/Hives Verified 05/09/24 15:52 Review of Systems ROS Statement: Those systems with pertinent positive or pertinent negative responses have been documented in the HPI. ROS Other: All systems not noted in ROS Statement are negative. Past Medical History Past Medical History: CVA/TIA, Hypertension, Myocardial Infarction ([place]) Additional Past Medical History / Comment(s): TIA Last Myocardial Infarction Date:: 2015 History of Any Multi-Drug Resistant Organisms: None Reported Past Surgical History: No Surgical Hx Reported Additional Past Surgical History / Comment(s): ear surgery as an Past Psychological History: Anxiety, Depression Smoking Status: Current every day smoker Past Alcohol Use History: None Reported Past Drug Use History: Cocaine, Marijuana General Exam Limitations: no limitations Course Vital Signs 05/09/24 05/09/24 13:03 15:26 Temperature 97.5 F L 98.5 F Pulse Rate 97 67 Respiratory 18 24 Rate Blood Pressure 142/90 133/68 O2 Sat by Pulse 98 100 Oximetry Medical Decision Making - Medical Decision Making Was pt. sent in by a medical professional or institution (, [facility], [facility], urgent care, hospital, or intermediate...) When possible be specific @ -No Did you speak to anyone other than the patient for history (EMS, parent, family, police, friend...)? What history was obtained from this source @ -No Did you review nursing and triage notes (agree or disagree)? Why? @ -I reviewed and agree with nursing and triage notes Were old charts reviewed (outside hosp., previous admission, EMS record, old EKG, old radiological studies, urgent care reports/EKG's, intermediate records)? Report findings @ -No old charts were reviewed Differential Diagnosis (chest pain, altered mental status, abdominal pain women, abdominal pain men, vaginal bleeding, weakness, fever, dyspnea, syncope, headache, dizziness, GI bleed, back pain, seizure, CVA, palpatations, mental he alth, musculoskeletal)? @ -Differential Chest Pain: Stable Angina, Unstable Angina, STEMI, NSTEMI Aortic Dissection, Pneumothorax, Musculoskeletal, Esophageal Spasm GERD, Cholecystitis, Pancreatitis, Zoster, this is not meant to be an all-inclusive list. EKG interpreted by me (3pts min.). @ -As above X-rays interpreted by me (1pt min.). @ -Chest x-ray shows no acute normality CT interpreted by me (1pt min.). @ -None done U/S interpreted by me (1pt. min.). @ -None done What testing was considered but not performed or refused? (CT, X-rays, U/S, labs)? Why? @ -None What meds were considered but not given or refused? Why? @ -None Did you discuss the management of the patient with other professionals (professionals i.e. , [facility], [facility], lab, RT, psych nurse, medical social consultant, door liner helper, teacher, hospital chief financial officer, case planner)? Give summary @ -Spoke with Dr. Powell and he wanted the patient admitted for observation Was smoking cessation discussed for >3mins.? @ -No Was critical care preformed (if so, how long)? @ -No Were there social determinants of health that impacted care today? How? (Homelessness, low income, unemployed, alcoholism, drug addiction, transportation, low edu. Level, literacy, decrease access to med. care, correction, rehab)? @ -No Was there de-escalation of care discussed even if they declined (Discuss DNR or withdrawal of care, Hospice)? DNR status @ -No What co-morbidities impacted this encounter? (DM, HTN, Smoking, COPD, CAD, Cancer, CVA, ARF, Chemo, Hep., AIDS, mental health diagnosis, sleep apnea, morbid obesity)? @ -None Was patient admitted / discharged? Hospital course, mention meds given and route, prescriptions, significant lab abnormalities, going to OR and other pertinent info. @ -Patient's chest pain had resolved prior to his arrival and he continued to be resolved throughout his stay. I spoke with Dr. Powell and he did want the patient to be admitted. Undiagnosed new problem with uncertain prognosis? @ -No Drug Therapy requiring intensive monitoring for toxicity (Heparin, Nitro, Insulin, Cardizem)? @ -No Were any procedures done? @ -No Diagnosis/symptom? @ -Chest pain Acute, or Chronic, or Acute on Chronic? @ -Acute Uncomplicated (without systemic symptoms) or Complicated (systemic symptoms)? @ -Complicated Side effects of treatment? @ -No Exacerbation, Progression, or Severe Exacerbation? @ -No Poses a threat to life or bodily function? How? (Chest pain, [place], [place], pneumonia, PE, COPD, DKA, ARF, appy, cholecystitis, CVA, Diverticulitis, Homicidal, Suicidal, threat to staff... and all critical care pts) @ -Yes this can lead to an [place] and endorgan dysfunction - Lab Data Result diagrams: 05/09/24 13:23 05/09/24 13:23 Lab Results 05/09/24 05/09/24 05/09/24 Range/Units 13:23 13:23 13:23 WBC 7.5 (3.8-10.6) k/uL RBC 5.60 (4.30-5.90) m/uL Hgb 16.2 (13.0-17.5) gm/dL Hct 48.9 (39.0-53.0) % MCV 87.4 (80.0-100.0) fL MCH 29.0 (25.0-35.0) pg MCHC 33.1 (31.0-37.0) g/dL RDW 13.0 (11.5-15.5) % Plt Count 295 (150-450) k/uL MPV 8.1 Neutrophils % 60 % Lymphocytes % 27 % Monocytes % 8 % Eosinophils % 4 % Basophils % 1 % Neutrophils # 4.5 (1.3-7.7) k/uL Lymphocytes # 2.0 (1.0-4.8) k/uL Monocytes # 0.6 (0-1.0) k/uL Eosinophils # 0.3 (0-0.7) k/uL Basophils # 0.0 (0-0.2) k/uL PT 11.1 (10.0-12.5) sec INR 1.0 (<1.2) APTT 24.2 (22.0-30.0) sec Sodium 141 (137-145) mmol/L Potassium 4.1 (3.5-5.1) mmol/L Chloride 105 (98-107) mmol/L Carbon Dioxide 29 (22-30) mmol/L Anion Gap 7 mmol/L BUN 15 (9-20) mg/dL Creatinine 0.89 (0.66-1.25) mg/dL Est GFR (CKD-EPI)AfAm >90 (>60 ml/min/1.73 sqM) Est GFR (CKD-EPI)NonAf >90 (>60 ml/min/1.73 sqM) Glucose 66 L (74-99) mg/dL Calcium 9.3 (8.4-10.2) mg/dL Magnesium 1.9 (1.6-2.3) mg/dL Total Bilirubin 0.7 (0.2-1.3) mg/dL AST 23 (17-59) U/L ALT 15 (4-49) U/L Alkaline Phosphatase 89 (38-126) U/L Troponin I (0.000-0.034) ng/mL Total Protein 7.7 (6.3-8.2) g/dL Albumin 4.3 (3.5-5.0) g/dL 05/09/24 Range/Units 13:23 WBC (3.8-10.6) k/uL RBC (4.30-5.90) m/uL Hgb (13.0-17.5) gm/dL Hct (39.0-53.0) % MCV (80.0-100.0) fL MCH (25.0-35.0) pg MCHC (31.0-37.0) g/dL RDW (11.5-15.5) % Plt Count (150-450) k/uL MPV Neutrophils % % Lymphocytes % % Monocytes % % Eosinophils % % Basophils % % Neutrophils # (1.3-7.7) k/uL Lymphocytes # (1.0-4.8) k/uL Monocytes # (0-1.0) k/uL Eosinophils # (0-0.7) k/uL Basophils # (0-0.2) k/uL PT (10.0-12.5) sec INR (<1.2) APTT (22.0-30.0) sec Sodium (137-145) mmol/L Potassium (3.5-5.1) mmol/L Chloride (98-107) mmol/L Carbon Dioxide (22-30) mmol/L Anion Gap mmol/L BUN (9-20) mg/dL Creatinine (0.66-1.25) mg/dL Est GFR (CKD-EPI)AfAm (>60 ml/min/1.73 sqM) Est GFR (CKD-EPI)NonAf (>60 ml/min/1.73 sqM) Glucose (74-99) mg/dL Calcium (8.4-10.2) mg/dL Magnesium (1.6-2.3) mg/dL Total Bilirubin (0.2-1.3) mg/dL AST (17-59) U/L ALT (4-49) U/L Alkaline Phosphatase (38-126) U/L Troponin I <0.012 (0.000-0.034) ng/mL Total Protein (6.3-8.2) g/dL Albumin (3.5-5.0) g/dL Disposition Clinical Impression: Chest pain Disposition: ADMITTED IP TO THIS HOSP Referrals: Rbo Saldivar MD [Primary Care Provider] - 1-2 days Time of Disposition: 16:02
[2024-05-09 16:03] LABS: Glucose,Whole Blood 135 mg/dL (70-110)
[2024-05-09] MEDS ORDERED: NITROGLYCERIN SL TABS 0.4 MG TAB SUBLINGUAL PRN (16:03)
[2024-05-09] MEDS: ACETAMINOPHEN TAB 325 MG TAB PO PRN (18:24)
[2024-05-09] MEDS: NITROGLYCERIN OINT 1 INCH/GM PACKET TOPICAL SCH (20:12)
[2024-05-09] MEDS: ATORVASTATIN 40 MG TAB PO SCH (20:12)
[2024-05-10] MEDS ORDERED: ISOSORBIDE MONONITRATE ER 15 MG TAB PO SCH (09:00)
[2024-05-10] MEDS ORDERED: ASPIRIN 325 MG TAB PO SCH (09:00)
[2024-05-10] MEDS: SPIRONOLACTONE 25 MG TAB PO SCH (09:11)
[2024-05-10] MEDS: lisinopriL 20 MG TAB PO SCH (09:11)
[2024-05-10] MEDS: amLODIPine 10 MG TAB PO SCH (09:11)
[2024-05-10] MEDS: ISOSORBIDE MONONITRATE ER 30 MG TAB.ER.24H PO SCH (09:11)
[2024-05-10] MEDS: ASPIRIN 81 MG PO SCH (09:11)
[2024-05-10] MEDS: PANTOPRAZOLE 40 MG TABLET PO SCH (09:11)
[2024-05-10 10:24] LABS: Chol/HDL Ratio 4.22 Ratio; LDL Cholesterol,Calculated 87.8 mg/dL (0.0-131.0)
[2024-05-10] MEDS ORDERED: NITROGLYCERIN SL TABS 0.4 MG TAB SUBLINGUAL PRN (10:31)
[2024-05-10] MEDS ORDERED: ALPRAZolam 0.25 MG TAB PO PRN (10:31)
[2024-05-10] MEDS ORDERED: ALPRAZolam 0.5 MG TAB PO PRN (10:31)
--- NOTE | 2024-05-10 10:53 | P.CRDCN ---
History of Present Illness History of present illness: HISTORY OF PRESENT ILLNESS: This is a 43-year-old male with a past medical history significant for hypertension and nicotine dependence. Patient has not yet established in the office but was recently evaluated in the hospital by Dr. Villalobos. We have been asked to see the patient in consultation for chest pain. Patient examined at the bedside. Patient was hospitalized a few days ago for chest pain and hypertension. Patient underwent echocardiogram at that time revealing EF of 45% with no obvious regional wall motion abnormalities. The patient was scheduled for a stress test however he was discharged home prior to this being completed by Dr. Saldivar. The patient presented back to the hospital with a chief complaint of chest pain. He reports that he has been having a pressure type sensation on his chest. He also reports occasionally having a pins and needle sensation. 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 He states he does not have any chest pain with activity. He does report he is a current cigarette smoker. He states his dad has a history of CAD but he is unsure at what age this started. DIAGNOSTICS: - EKG reveals sinus mechanism with LVH. - Chest xray negative for acute process. - Laboratory data: WBC 7.5. Hemoglobin 16.2. Platelet count 295. Sodium 141. Potassium 4.1 BUN 15. Creatinine 0.89. Magnesium 1.9. Troponin negative x 3 - Current home cardiac medications include Lipitor 40 mg at night, aspirin 81 mg daily, chlorthalidone 25 mg daily, Imdur 15 mg daily, amlodipine 10 mg daily, and lisinopril 40 mg daily. - Most recent echocardiogram obtained in May 06, 2024 revealed ejection fraction 45 to 50% with no obvious regional wall motion abnormalities and moderate concentric LVH REVIEW OF SYSTEMS: At the time of my exam: CONSTITUTIONAL: Denies fever or chills. HEENT: Denies blurred vision, vision changes, or eye pain. Denies hemoptysis CARDIOVASCULAR: Denies chest pain. Denies orthopnea. Denies PND. Denies pal pitations RESPIRATORY: Denies shortness of breath. GASTROINTESTINAL: Denies abdominal pain. Denies nausea or vomiting. HEMATOLOGIC: Denies bleeding disorders. GENITOURINARY: Denies any blood in urine. SKIN: Denies pruitis. Denies rash. PHYSICAL EXAM: VITAL SIGNS: Reviewed. GENERAL: Well-developed in no acute distress. HEENT: Head is normocephalic. Pupils are equal, round. Sclerae anicteric. Mucous membranes of the mouth are moist. Neck supple. No JVD or thyromegaly LUNGS: Respirations even and unlabored. Lungs essentially clear to auscultation bilaterally. HEART: Regular rate and rhythm. S1 and S2 heard. ABDOMEN: Soft. Nondistended. Nontender. EXTREMITIES: Normal range of motion. No clubbing or cyanosis. Peripheral pulses intact. No lower extremity edema NEUROLOGIC: Awake and alert. Oriented x 3. ASSESSMENT: Chest pain, troponin negative x 3 Hypertension, uncontrolled Cardiomyopathy, EF 45%, ischemic versus nonischemic Moderate concentric LVH noted on echocardiogram Nicotine dependence Family history of CAD PLAN: No need to repeat echocardiogram as this was performed this month Resume home cardiac medications Increase Imdur to 30 mg daily Add Aldactone 25 mg daily Continue to monitor blood pressure Patient was initially scheduled to undergo stress testing this morning. However during his stress test patient was complaining of chest pain 7/10 and was unable to continue walking and did not reach his target heart rate. Due to this, patient was recommended to undergo cardiac catheterization. Patient is agreeable. Patient will undergo cardiac catheterization tomorrow with Dr. Wilfredo Murray at midnight Smoking cessation recommended. Patient to be referred to [place] quit line upon discharge Further recommendations pending patient course Nurse practitioner note has been reviewed by physician. Signing provider agrees with the documented findings, assessment, and plan of care documented by TABLE ASSEMBLER as a scribe. Past Medical History Past Medical History: CVA/TIA, Hypertension, Myocardial Infarction ([place]) Additional Past Medical History / Comment(s): TIA Last Myocardial Infarction Date:: 2015 History of Any Multi-Drug Resistant Organisms: None Reported Past Surgical History: No Surgical Hx Reported Additional Past Surgical History / Comment(s): ear surgery as an infant Past Psychological History: Anxiety, Depression Smoking Status: Current every day smoker Past Alcohol Use History: None Reported Past Drug Use History: Cocaine, Marijuana Medications and Allergies Home Medications Medication Instructions Recorded Confirmed Type Pantoprazole Sodium [Protonix] 40 mg PO DAILY 11/02/23 05/09/24 History buPROPion XL [Wellbutrin XL] 300 mg PO DAILY 11/02/23 05/09/24 History busPIRone HCL 10 mg PO TID-W/MEALS 11/02/23 05/09/24 History lisinopriL 40 mg PO DAILY 05/05/24 05/09/24 History Aspirin 81 mg PO DAILY #100 tab 05/07/24 05/09/24 Rx Atorvastatin [Lipitor] 40 mg PO HS #30 tab 05/07/24 05/09/24 Rx Chlorthalidone [Hygroton] 25 mg PO DAILY #30 tab 05/07/24 05/09/24 Rx Isosorbide Mononitrate ER [Imdur] 15 mg PO DAILY 05/09/24 05/09/24 History amLODIPine [Norvasc] 10 mg PO DAILY 05/09/24 05/09/24 History Allergies Allergy/AdvReac Type Severity Reaction Status Date / Time erythromycin base Allergy Rash/Hives Verified 05/09/24 15:52 Physical Exam Vitals: Vital Signs Temp Pulse Pulse Pulse Resp BP BP 05/10/24 07:00 97.8 F 80 20 147/98 05/10/24 02:16 97.9 F 72 16 142/82 05/09/24 20:47 98.0 F 74 16 143/80 05/09/24 18:16 05/09/24 17:54 97.7 F 82 130/75 05/09/24 17:33 60 20 165/98 05/09/24 16:43 98.1 F 87 16 144/83 05/09/24 15:26 98.5 F 67 24 133/68 05/09/24 13:03 97.5 F L 97 18 142/90 Pulse Ox 05/10/24 07:00 96 05/10/24 02:16 98 05/09/24 20:47 97 05/09/24 18:16 98 05/09/24 17:54 95 05/09/24 17:33 98 05/09/24 16:43 95 05/09/24 15:26 100 05/09/24 13:03 98 Intake and Output 05/09/24 05/10/24 05/10/24 22:59 06:59 14:59 Other: # Voids 1 Weight 86.636 kg Results 05/09/24 13:23 05/09/24 13:23 Cardiac Enzymes 05/09/24 05/09/24 05/09/24 Range/Units 13:23 13:23 16:38 AST 23 (17-59) U/L Troponin I <0.012 <0.012 (0.000-0.034) ng/mL 05/09/24 Range/Units 18:47 AST (17-59) U/L Troponin I <0.012 (0.000-0.034) ng/mL Coagulation 05/09/24 Range/Units 13:23 PT 11.1 (10.0-12.5) sec APTT 24.2 (22.0-30.0) sec CBC 05/09/24 Range/Units 13:23 WBC 7.5 (3.8-10.6) k/uL RBC 5.60 (4.30-5.90) m/uL Hgb 16.2 (13.0-17.5) gm/dL Hct 48.9 (39.0-53.0) % Plt Count 295 (150-450) k/uL Comprehensive Metabolic Panel 05/09/24 Range/Units 13:23 Sodium 141 (137-145) mmol/L Potassium 4.1 (3.5-5.1) mmol/L Chloride 105 (98-107) mmol/L Carbon Dioxide 29 (22-30) mmol/L BUN 15 (9-20) mg/dL Creatinine 0.89 (0.66-1.25) mg/dL Glucose 66 L (74-99) mg/dL Calcium 9.3 (8.4-10.2) mg/dL AST 23 (17-59) U/L ALT 15 (4-49) U/L Alkaline Phosphatase 89 (38-126) U/L Total Protein 7.7 (6.3-8.2) g/dL Albumin 4.3 (3.5-5.0) g/dL Current Medications Generic Name Dose Route Start Last Admin Trade Name Freq PRN Reason Stop Dose Admin Acetaminophen 650 mg 05/09/24 18:17 05/09/24 18:24 Acetaminophen Tab 325 Mg Tab PO 650 mg Q6HR PRN Administration Fever and/ or Pain Amlodipine Besylate 10 mg 05/10/24 09:00 Amlodipine 10 Mg Tab PO DAILY [facility] Aspirin 325 mg 05/10/24 09:00 Aspirin 325 Mg Tab PO DAILY [facility] Atorvastatin Calcium 40 mg 05/09/24 21:00 05/09/24 20:12 Atorvastatin 40 Mg Tab PO 40 mg HS [facility] Administration Bupropion HCl 300 mg 05/10/24 09:00 Bupropion Xl 300 Mg Tab.Er.24h PO DAILY [facility] Lisinopril 40 mg 05/10/24 09:00 Lisinopril 20 Mg Tab PO DAILY [facility] Nitroglycerin 0.4 mg 05/09/24 16:03 Nitroglycerin Sl Tabs 0.4 Mg Tab SUBLINGUAL Q5M PRN Chest Pain Nitroglycerin 1 inch 05/09/24 18:00 05/10/24 06:01 Nitroglycerin Oint 1 Inch/Gm Packet TOPICAL Not Given Q6HR [facility] Pantoprazole Sodium 40 mg 05/10/24 09:00 Pantoprazole 40 Mg Tablet PO DAILY [facility] Intake and Output 05/09/24 05/10/24 05/10/24 22:59 06:59 14:59 Other: # Voids 1 Weight 86.636 kg 05/09/24 13:23 05/09/24 13:23
[2024-05-10] MEDS: buPROPion XL 300 MG TAB.ER.24H PO SCH (12:44)
[2024-05-10] MEDS: CHLORTHALIDONE 25 MG TAB PO SCH (12:44)
--- NOTE | 2024-05-10 12:54 | CA ---
Exercise Stress Test Report Name: Juan Allison Exam Date: 05/10/2024 09:29 Exam Location: [place] Stress Ht (in): 72 Wt (lb): 190 BSA: 2.08 Ordering Phys: Ashli Forbes Referring Phys: LORIE Technologist: Josefa Alvarez RDCS Age: 43 Gender: M : 1980 Procedure CPT: Indications: CP ICD-10 Codes: Patient History: Medications: SEE CHART Meds past 24 hrs: Pretest Chest Pain: STRESS TEST Mau Protocol Exercise Duration (min:sec): 09:[address] Depressions (mm): Angina Score: Cotto Score: Resting HR (bpm): 83 Peak HR (bpm): 120 Resting BP (mmHg): 153 / 101 Peak BP (mmHg): / 102 MPHR: 177 Target HR: 150 % MPHR: 68 METS: 11.8 Total Dose: Peak Dose: Atropine: Double Product: BP Response: Stress Termination: Chest pain Stress Symptoms: CHEST PAIN AND DIZZINESS Stress Summary: ECG ANALYSIS Resting ECG: Stress ECG: CONCLUSIONS Excellent exercise tolerance Nondiagnostic stress testing because the patient achieved only 68% of maximum predicted heart rate Normal EKG up to the level of heart rate achieved which is 68% of maximum predicted Chest discomfort in response to exercise Dr. Chucho Carrizales MD (Electronically Signed) Final Date: 10 May 2024 12:53
--- NOTE | 2024-05-10 23:01 | PN ---
PROGRESS NOTE CHIEF COMPLAINT: Labile hypertension and chest pain. HISTORY OF PRESENT ILLNESS: This gentleman is doing well and stable. Blood pressure is down. Enzymes been normal. His stress test was reported out as being normal and he was to be discharged. PHYSICAL EXAMINATION: VITAL SIGNS: Normal. CHEST: Clear. CARDIAC: Normal. ABDOMEN: Soft, nontender. IMPRESSION: 1. Hypertension. 2. History of multiple substance abuse and addiction. PLAN: Discharge home. ADDENDUM: After the patient was discharged, the nurse called that his stress test was "abnormal." Apparently, the floor got a call from the lab after his stress test that it was abnormal and that he was to have a cardiac cath. This is confusing based on the written report of the stress test. MMODL / IJN: [id number] /
--- NOTE | 2024-05-10 23:25 | HP ---
HISTORY AND PHYSICAL CHIEF COMPLAINT: High blood pressure and chest pain. HISTORY OF PRESENT ILLNESS: This is another admission for this 43-year-old white male who was just in the hospital recently. He is in and out with episodes of chest pain and hypertension. He came to the emergency room this time stating that his blood pressure is high at home at 200/126, but in the emergency room it was 140/90. Troponins were normal as was the EKG. He was admitted. REVIEW OF SYSTEMS: He states he has a headache and he has had no diaphoresis, referral with chest pain, shortness of breath, etc. Past medical history, family history, and personal and social histories are all unremarkable essentially otherwise. He is currently on aspirin, chlorthalidone, amlodipine, atorvastatin, isosorbide mononitrate, pantoprazole, and lisinopril. PHYSICAL EXAMINATION: VITAL SIGNS: Blood pressure is 140/90. He is in normal sinus rhythm. HEAD, EARS, EYES, NOSE, MOUTH, AND THROAT: Normal. NECK: Neck veins are not distended. CHEST: Clear. CARDIAC: Normal. ABDOMEN: Soft, nontender. EXTREMITIES: Normal. IMPRESSION: 1. Labile hypertension. 2. Chest pain. 3. History of multiple drug abuse including cocaine, heroin, amphetamines, barbiturates, and hallucinogens. PLAN: 1. Bedrest. 2. Serial EKGs and enzymes. 3. Cardiology consult. MMODL / IJN: [id number] /
[2024-05-11] MEDS: ASPIRIN 325 MG TAB PO ONE (06:13)
[2024-05-11] MEDS: ATORVASTATIN 80 MG TAB PO ONE (06:13)
[2024-05-11] MEDS: SODIUM CHLORIDE 0.9% 1,000 ML in EMPTY BAG 1 BAG IV SCH (06:14)
[2024-05-11] MEDS ORDERED: HEPARIN SODIUM,PORCINE 10,000 UNIT in SODIUM CHLORIDE 0.9% 1,000 ML IRRIGATION PRN (07:00)
[2024-05-11] MEDS ORDERED: HEPARIN SODIUM,PORCINE (1 ML) 2,500 UNIT in SODIUM CHLORIDE 0.9% 250 ML IRRIGATION PRN (07:00)
[2024-05-11 08:01] VITALS: RESP 16
[2024-05-11 11:22] LABS: Glucose,Whole Blood 91 mg/dL (70-110)
[2024-05-11] MEDS: IV FLUID CONTINUATION 1,000 ML IV ONE (11:38)
[2024-05-11] MEDS: ONDANSETRON 4 MG/2 ML VIAL IVP ONE (11:49)
[2024-05-11] MEDS: MIDAZOLAM 2 MG/2 ML VIAL IVP ONE (11:50)
[2024-05-11] MEDS: fentaNYL (PF) 50 MCG/ML 2 ML AMP IVP ONE (11:50)
[2024-05-11] MEDS: PHENYLEPHRINE-0.9% NACL SYG 1,000 MCG/10 ML SYRINGE IVP ONE ×2 (11:50→12:05)
[2024-05-11] MEDS: LIDOCAINE 1% INJ 10MG/ML (20 ML MDV) SQ ONE (11:54)
[2024-05-11] MEDS: VERAPAMIL SYRINGE (5 MG/10 ML) INTRAARTER ONE (11:56)
[2024-05-11] MEDS: SODIUM CHLORIDE 0.9% 1,000 ML IV ONE (12:00)
[2024-05-11] MEDS: HEPARIN SODIUM 1,000 UN/ML (10ML VL) IVP ONE (12:02)
[2024-05-11] MEDS: IOPAMIDOL-370 100ML BTL INJ ONE (12:25)
[2024-05-11] MEDS ORDERED: RX INFO: IV CONTRAST WAS GIVEN 1 EACH MISC MISCELLANE PRN (12:28)
--- NOTE | 2024-05-11 12:28 | P.CARDCATH ---
Date of Procedure: 05/11/24 Description of Procedure: DIAGNOSTIC CORONARY ANGIOGRAPHY and LEFT HEART CATH REPORT PROCEDURES PERFORMED: Left heart catheterization Selective coronary angiography Moderate conscious sedation 20 mins Right radial access INDICATION: Unstable angina mild cardiomyopathy 43-year-old male presented to the hospital initially with substernal chest pressure and elevated blood pressure. He had an echocardiogram which showed an EF of 45 to 50%. This is a new diagnosis of his cardiomyopathy. He was scheduled for a stress test but eventually was discharged prior to the stress test. He returned back to the hospital with substernal chest pressure symptoms even with good blood pressure control. Due to his substernal chest pressure symptoms and cardiomyopathy was scheduled for a heart catheterization procedure CONSENT: I have explained the procedural steps of above-mentioned procedures in layman's terms to the patient. I discussed the risks (including but not limited to stroke, emergent vascular or cardiac surgery or ), benefits and alternative therapies for the above-mentioned procedure. I discussed the risks of sedation/analgesia and blood product administration (if indicated). The patient has indicated understanding and acceptance of these risks. Conscious Sedation: Patient's ECG, heart rate, blood pressure, pulse oximetry were monitored throughout the duration of procedure under my direct supervision. 1 mg Versed and 50 mg Fentanyl were used for induction of moderate conscious sedation. Total duration of moderate concious sedation 20 minutes. PROCEDURE: When the patient was moved to the cardiac [employer] he was normotensive. After placing him on cardiac cath table, he got diaphoretic and reported having nausea along with his blood pressure drop with systolic around 80 mmHg. It appears that patient was going into vasovagal attack. He gave him IV fluids with minimal response to blood pressure. For this we gave him 200 mcg of phenylephrine with good blood pressure response. After explaining the risks, benefits and alternatives of the above mentioned procedures in detail to the patient, informed consent was obtained. Patient was taken to the catheterization lab, prepped and draped in usual sterile fashion using universal precuations. Barbow and miriam test were performed to confirm adequate perfusion to fingers. 1% lidocaine was infiltrated over the right radial artery. A 6-Anguillan sheath was placed and secured in the right radial artery using modified Seldinger technique. The sheath was flushed and 5 mg verapamil was administered intra-arterially. After administrating sedation and verapamil his blood pressure dropped again. For this we gave him 200 mcg of additional phenylephrine. J tipped wire was advanced under fluoroscopic guidance. Once the wire tip reached aortic root 5500 units of IV heparin was given. Over the wire JR5 diagnostic catheter was advanced. The wire in place the catheter was manipulated to cross the aortic valve and entered into LV under fluoroscopy guidance. The wire was removed and the catheter was flushed. LV pressures were obtained and pullback was performed under fluoroscopy. Catheter was manipulated to selectively engage the right coronary ostium. Right coronary angiography was performed in different angiographic projections. The JR4 diagnostic catheter was exchanged for a JL .35 diagnostic catheter over the J-wire. The wire was removed, catheter was flushed and manipulated under fluoroscopy to selectively engaged the left coronary ostium. Left coronary angioplasty was performed in different angiographic projections. Catheter was removed over the wire. Radial sheath was flushed. The right radial sheath was removed and a TR band was placed with excellent patent hemostasis was achieved. The patient tolerated the procedure well. Patient was transported back to the post catheterization holding area in stable condition. Angiographic images were reviewed in detail. Technical data Estimated blood loss, less than 20 mL Complications none Medications used, 5500 heparin, 5 mg verapamil, 400 mcg phenylephrine Contrast used, Isovue 60 ml HEMODYNAMICS: Aortic Pressure: 79/68 mmHg. LV pressure: 83/2 mmHg. LVEDP 7 mmHg. There was no significant gradient across the aortic valve. SELECTIVE CORONARY ARTERIOGRAPHY: LEFT MAIN: The left main is a large caliber vessel which bifurcates into the LAD and circumflex. Left main appears angiographically normal. LEFT ANTERIOR DESCENDING CORONARY ARTERY: LAD is a large caliber vessel which wraps around to the apex. Proximal LAD appears angiographically normal. Mid LAD appears angiographically normal. Distal LAD appears angiographically normal. Proximal LAD gives medium size diagonal 1 branch which appears angiographically normal. Mid and distal LAD gives small diagonal branches which are angiographically normal. LEFT CIRCUMFLEX CORONARY ARTERY: It is nondominant vessel. Proximal Left circumflex is a large caliber vessel. It appears angiographically normal. It gives rise to a large OM1 branch and large OM 2 branch which appears angiographically normal RIGHT CORONARY ARTERY: Dominant vessel. The right coronary artery is a large caliber vessel which gives PDA and PLV branch. It appears angiographically normal. IMPRESSION: Angiographically normal coronary arteries as described above. Normal left sided filling pressures Slow flow in coronary arteries, likely due to high vagal tone from neurocar diogenic event during cardiac cath and low blood pressure. PLAN: Aggressive risk factor modification per most recent ACC/AHA guidelines. 125 cc fluids for 4 hours Discharge home in 4 hours Follow-up in the office in 1-2 weeks. Performing Physician Bobby Villalobos MD, FACC, RPVI Thank you for allowing [facility] to participate in this patient's care. Feel free to reach out in case of any followup questions.
[2024-05-11 12:33] VITALS: TEMP 97.4
[2024-05-11] MEDS: SODIUM CHLORIDE 0.9% 1,000 ML IV SCH (15:04)
[2024-05-11 16:42] VITALS: BP 107/54; PULSE 63
[2024-05-11] MEDS: SPIRONOLACTONE 25 MG TAB PO STA (17:35)
--- NOTE | 2024-05-11 21:07 | DS ---
DISCHARGE SUMMARY CHIEF COMPLAINT: Hypertensive urgency and chest pain. HISTORY OF PRESENT ILLNESS AND PHYSICAL EXAMINATION: Details of this man's history and physical can be found in the initial workup. LABORATORY STUDIES: While he is in the hospital, he had laboratory studies, details of which can be found in the laboratory section of his chart. COURSE IN THE HOSPITAL: After admission, he was placed on bedrest, started on intravenous fluids. Blood pressure was brought under control. Troponins were negative. He was seen by Cardiology and he was taken for a stress test, which was normal. For some reason, they recommended a heart catheterization which was normal. He was discharged and will be followed up in the office. FINAL DIAGNOSES: 1. Hypertensive urgency. 2. Chest pain. 3. Previous anteroseptal myocardial infarction. OPERATIONS: Cardiac cath. CONSULTATIONS: Cardiology, he is improved. MMODL / IJN: [id number] /
== END 2024-05-11 17:42 | disposition home or self-care (01) ==
LOC: EC 13:02 → 6NMEDSUR 16:05
PROVIDERS: ADMIT Family Medicine; ATTEND Family Medicine
DX: R07.89 Other chest pain (principal); I16.0 Hypertensive urgency; I10 Essential (primary) hypertension; I25.2 Old myocardial infarction; Z79.82 Long term (current) use of aspirin; Z79.899 Other long term (current) drug therapy; Z88.1 Allergy status to other antibiotic agents; F17.210 Nicotine dependence, cigarettes, uncomplicated; Z87.898 Personal history of other specified conditions
CPT/HCPCS: 99285; 36415; 93005 ×2; 93017; 80061; 80053; 83735; 84484; 85025; 85610; 85730; 71046; G0378 ×3; C1769 ×2; C1894; J2250; J2405; J2001; J3010; J1644; Q9967; J2371